=== PATIENT | male | born 1985 | race Caucasian/White ===

== ENCOUNTER 2018-10-22 20:40 | Emergency (ER) | payer BC, OTHER ==
--- NOTE | 2018-10-22 20:48 | EDM.PDOC ---
ED HPI GENERAL MEDICAL PROBLEM - General Chief Complaint: Upper Extremity Injury/Pain Stated Complaint: L SHOULDER INJURY Time Seen by Provider: 10/22/18 20:47 - History of Present Illness INITIAL COMMENTS - FREE TEXT/NARRATIVE: 33-year-old male presents emergency room with an injured left shoulder. Patient was sliding into base and caught it funny it feels like it popped out of joint. Patient denies any other injuries just his left shoulder pain he has minimal numbness and tingling in his hands he just can't move his arm or hand. Patient was diving into first base and caught it funny. He did not hit his head no loss of consciousness Left Shoulder Pain Score (Numeric/FACES): 10 - Related Data Allergies Allergy/AdvReac Type Severity Reaction Status Date / Time No Known Allergies Allergy Verified 04/06/15 10:26 Home Meds: Home Meds . [No Known Home Meds] 10/22/18 [History] Past Medical History Other Musculoskeletal History: Left knee injury - Past Surgical History Other HEENT Surgeries/Procedures: Lasik eye procedure Review of Systems - Review of Systems Review Of Systems: See Below Constitutional: Reports: No Symptoms Eyes: Reports: No Symptoms Ears: Reports: No Symptoms, Previous Injury Nose: Reports: No Symptoms, Previous Injury Mouth/Throat: Reports: No Symptoms, Difficulty Swallowing Respiratory: Reports: No Symptoms Cardiovascular: Reports: No Symptoms GI/Abdominal: Reports: No Symptoms Musculoskeletal: Reports: Other (Only left shoulder pain) ED EXAM, GENERAL - Physical Exam Exam: See Below Exam Limited By: No Limitations General Appearance: Alert, No Apparent Distress Head: Atraumatic, Normocephalic Neck: Normal Inspection, Supple, Non-Tender, Full Range of Motion. No: Lymphadenopathy (L), Lymphadenopathy (R) Respiratory/Chest: No Respiratory Distress, Lungs Clear, Normal Breath Sounds Cardiovascular: Normal Peripheral Pulses, Regular Rate, Rhythm, No Edema Peripheral Pulses: 2+: Brachial (L), Brachial (R), Radial (L), Radial (R) GI/Abdominal: Normal Bowel Sounds, Soft, Non-Tender Back Exam: Normal Inspection, Full Range of Motion. No: CVA Tenderness (L), CVA Tenderness (R) Extremities: Normal Inspection, Normal Range of Motion, Non-Tender, Other ( Normal except for his left shoulder) Neurological: Alert, Oriented, Normal Cognition Course - Vital Signs Last Recorded V/S: Last Vital Signs Temp 37.0 C 10/22/18 20:56 Pulse 85 10/22/18 20:56 Resp 20 10/22/18 20:56 BP 112/71 10/22/18 20:56 Pulse Ox 96 10/22/18 20:56 - Orders/Labs/Meds Orders: Active Orders 24 hr Category Date Time Status Shoulder Comp Lt [CR] Stat Exams 10/22/18 20:55 Taken - Re-Assessments/Exams Free Text/Narrative Re-Assessment/Exam: 10/22/18 21:30 Upon initial exam patient was palpated had an obvious anterior dislocation with gentle external rotation this fell back into place without difficulty patient felt much better. Patient was placed in a sling. Follow-up x-rays were obtained which are negative for fracture dislocation showed good anatomic alignment of the shoulder joints. Neurovascular status of the hand and forearm are within normal limits. Departure - Departure Time of Disposition: 21:31 Disposition: Home, Self-Care 01 Clinical Impression: Dislocation of left shoulder joint - Discharge Information Referrals: PCP,None [Primary Care Provider] - Zaki Menjivar MD [Physician] - Forms: ED Department Discharge Additional Instructions: Return to the emergency room with any questions problems worsening symptoms. Follow-up with Dr. Menjivar early next week . Wear the sling at all times. Motrin as needed for discomfort. - My Orders Last 24 Hours: My Active Orders 10/22/18 20:55 Shoulder Comp Lt [CR] Stat - Assessment/Plan Last 24 Hours: My Active Orders 10/22/18 20:55 Shoulder Comp Lt [CR] Stat
[2018-10-22 21:00] VITALS: BP 112/71
--- NOTE | 2018-10-23 07:40 | CR ---
Left shoulder: Three views of the left shoulder were obtained. Comparison: No previous left shoulder imaging. Distal clavicle is slightly elevated in relation to the acromion process. No fracture, dislocation or other bony abnormality is seen. Impression: 1. Distal clavicle slightly elevated. Minimal acromioclavicular separation is possible if patient has correlating symptoms. 2. Left shoulder study is otherwise unremarkable. Diagnostic code #3
== END 2018-10-22 21:35 | disposition home or self-care (01) ==
LOC: JD.ED 20:40
DX: S43.102A Unspecified dislocation of left acromioclavicular joint, initial encounter (principal); W23.1XXA Caught, crushed, jammed, or pinched between stationary objects, initial encounter
CPT/HCPCS: 23650; 73030-26-LT; 73030-LT; 99283-25